=== PATIENT | male | born 1960 | race African-American/Black ===

== ENCOUNTER 2016-11-04 21:53 | Emergency (ER) | payer OTHER ==
[~2016-11-04] VITALS: Ht 182.9 cm; Wt 104.0 kg
[2016-11-04 22:10] VITALS: BP 137/85; PULSE 78; RESP 18; TEMP 98.5; O2SAT 99
--- NOTE | 2016-11-04 22:53 | PD ---
HPI Chief Complaint: Fall Time Seen by Provider: 22:51 Travel History International Travel<30 days: No Contact w/Intl Traveler<30days: No Traveled to known affect area: No History of Present Illness HPI The patient is a 56-year-old male that slipped and fell at work, there was water on the floor. He has pain when he takes a long step and extends his right leg at the hip. He also has some slight pain when he bears a lot of weight on the right hip. He has never had any problems with his hip before. He states the pain came on when he twisted as he fell and not the impact of the fall itself. PFSH Past Medical History Medical History: Denies Significant Hx Diminished Hearing: No Tetanus Vaccination: < 5 Years Influenza Vaccination: No Past Surgical History Surgical History: No Previous Surgery Social History Alcohol Use: Yes (3 times a month; beer) Tobacco Use: Yes (5 cigs/day) Substance Use: No Allergies-Medications (Allergen,Severity, Reaction): Coded Allergies: No Known Allergies (Unverified , 11/04/16) Reported Meds & Prescriptions Reported Meds & Active Scripts Active No Active Prescriptions or Reported Medications Review of Systems Except as stated in HPI: all other systems reviewed are Neg Physical Exam Narrative GENERAL: Well-nourished, well-developed patient. SKIN: Focused skin assessment warm/dry. HEAD: Normocephalic. EYES: No scleral icterus. No injection or drainage. NECK: Supple, trachea midline. No JVD or lymphadenopathy. CARDIOVASCULAR: Regular rate and rhythm without murmurs, gallops, or rubs. RESPIRATORY: Breath sounds equal bilaterally. No accessory muscle use. GASTROINTESTINAL: Abdomen soft, non-tender, nondistended. MUSCULOSKELETAL: No cyanosis, or edema. There is minimal tenderness over the musculature anterior to the right hip. No swelling or deformity is noted. The patient can walk normally. BACK: Nontender without obvious deformity. No CVA tenderness. Data Data Last Documented VS Vital Signs Date Time Temp Pulse Resp B/P Pulse Ox O2 Delivery O2 Flow Rate FiO2 11/04/16 22:20 11/04/16 22:10 98.5 78 18 99 Orders Pelvis, Ap Only (Routine) (11/04/16 22:54) MDM Medical Decision Making Medical Screen Exam Complete: Yes Emergency Medical Condition: Yes Medical Record Reviewed: Yes Interpretation(s) X-rays of the pelvis show some slight arthritis but no acute fracture. Differential Diagnosis Muscle strain right hip, contusion right hip, fracture pelvis, fractured hip unlikely Narrative Course The patient is walking around normally on his right hip. 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 His pain came in is he twisted his right hip and not a fell, this does not appear to be a contusion and appears more as a muscle strain. Impression: Muscle strain right hip Plan: He will be given Motrin 800 mg 3 times daily. Diagnosis Primary Impression: Strain of muscle of right hip Additional Instructions: Take the Motrin regularly, 1 tablet 3 times daily. Follow-up with her primary care physician next week. Med/Other Pt SpecificInfo: Prescription(s) given Scripts Ibuprofen 800 Mg Twn650 Mg PO TID #44 TAB Ref 0 Prov:Demetris Lynne MD 11/05/16 Disposition: 01 DISCHARGE HOME Condition: Stable Demetris Lynne MD Nov 04, 2016 22:53
--- NOTE | 2016-11-04 23:33 | RADRPT ---
EXAM DATE/TIME: 11/04/2016 23:06 [facility] COMPARISON: No previous studies available for comparison. INDICATIONS : Right hip pain due to fall. MEDICAL HISTORY : None. SURGICAL HISTORY : None. ENCOUNTER: Initial ACUITY: 1 day PAIN SCORE: 10 LOCATION: Right hip FINDINGS: There are degenerative changes in the right hip. There is some lateral acetabular spurring and fragme ntation which appears nonacute. The femoral head and neck appear intact. Contralateral left hip is un remarkable. CONCLUSION: Arthritic changes. No acute bony findings Mario Brito MD on November 04, 2016 at 23:30 Board Certified Radiologist. This report was verified electronically.
[2016-11-05] MEDS ORDERED: IBUP800T23 PO
[2016-11-05 00:09] VITALS: BP 136/80; PULSE 74; RESP 18; O2SAT 98
== END 2016-11-05 00:10 | disposition home or self-care (01) ==
LOC: PHED 21:53
DX: S76.011A Strain of muscle, fascia and tendon of right hip, initial encounter (principal); X50.1XXA Overexertion from prolonged static or awkward postures, initial encounter; Y93.89 Activity, other specified; Y92.69 Other specified industrial and construction area as the place of occurrence of the external cause; Y99.0 Civilian activity done for income or pay; F17.210 Nicotine dependence, cigarettes, uncomplicated
CPT/HCPCS: 72170; 99283